=== PATIENT | female | born 1935 | race African-American/Black ===

== ENCOUNTER 2022-06-09 14:28 | Emergency (ER) | payer BC, OTHER ==
[2022-06-09 15:01] VITALS: BMI 18.2
[2022-06-10 00:54] VITALS: BP 166/82; PULSE 75; RESP 20; TEMP 98.6
== END 2022-06-10 01:19 ==
LOC: JER 14:28
DX: K92.1 Melena (principal); D64.9 Anemia, unspecified; Z51.5 Encounter for palliative care
CPT/HCPCS: 99282-25